=== PATIENT | female | born 1925 | race African-American/Black ===

== ENCOUNTER 2017-04-05 21:00 | Inpatient (IN) | payer MEDICARE, BC ==
[~2017-04-05] VITALS: Ht 162.6 cm; Wt 62.1 kg
[~2017-04-05 21:00] MED LIST: ASCO500C15 PO; ASPI-785 PO; CALC-1011 PO; CARB1TAB9 PO; CYAN10009 PO; DONE10TA43 PO; GUAI120015 PO; LES40 PO; LEVO5TAB13 PO; MAGN296S49 PO; MELA3TAB46 PO; MEMA10TA11 PO; MONT10TA21 PO; MULT-1195 PO; OMEG1CAP49 PO
[2017-04-05 22:24] LABS: CLARITY URINE CLEAR (CLEAR); COLOR URINE YELLOW (YELLOW); GLUCOSE URINE NEGATIVE (NEGATIVE); KETONES URINE NEGATIVE (NEGATIVE); LEUKOCYTE ESTERASE URINE NEGATIVE (NEGATIVE); NITRITE URINE NEGATIVE (NEGATIVE); OCCULT BLOOD URINE NEGATIVE (NEGATIVE); PROTEIN URINE NEGATIVE (NEGATIVE); SPECIFIC GRAVITY URINE 1.013 (1.005-1.030); UROBILINOGEN URINE 0.2 E.U./dL (0.2-1.0)
[2017-04-05 22:41] LABS: BASOPHILS % 0.7 % (0.0-2.0); EOSINOPHILS % 6.1 % (0.0-5.0); HEMATOCRIT. 37.1 % (36.0-48.0); HEMOGLOBIN. 12.3 g/dL (12.0-16.0); LYMPHOCYTES % 21.4 % (20.0-50.0); MEAN CORPUSCULAR HEMOGLOBIN 26.3 pg (28.0-32.0); MEAN CORPUSCULAR VOLUME 79.6 fL (81.0-99.0); MEAN PLATELET VOLUME 7.3 fl (7.4-10.4); NEUTROPHILS % 60.8 % (40.0-76.0); PLATELET 279 x1000/uL (130-400); RED BLOOD CELL COUNT 4.67 mill/uL (4.2-5.4)
[2017-04-05 22:49] LABS: INR 1.2; PROTHROMBIN TIME 12.1 sec
[2017-04-05 22:55] LABS: CARBON DIOXIDE 26 mEq/L (21-32); CHLORIDE 106 mEq/L (98-107)
[2017-04-05] MEDS ORDERED: LEVOFLOXACIN 750MG PREMIX 150 ML IV ONE (23:00)
[2017-04-06 08:00] VITALS: BP 155/76
[2017-04-06] MEDS ORDERED: GUAIFENESIN 200MG/10ML SUGAR FREE UDC PO PRN (08:45)
[2017-04-06] MEDS ORDERED: ONDANSETRON HCL 4MG/2ML VIAL IV PRN (08:45)
[2017-04-06] MEDS ORDERED: HYDROMORPHONE HCL/PF 2MG/ML CPJ IV PRN (08:45)
[2017-04-06] MEDS ORDERED: CLONIDINE 0.1MG TABLET PO PRN (08:45)
[2017-04-06 09:00] VITALS: BP 155/76
[2017-04-06] MEDS ORDERED: MAGNESIUM CITRATE 300ML SOLUTION PO PRN (09:00)
[2017-04-06] MEDS ORDERED: MEMANTINE HCL 10MG TABLET PO SCH (09:00)
[2017-04-06] MEDS ORDERED: MVI, ADULT NO.1 10 ML, FOLIC ACID 1 MG, THIAMINE HCL 100 MG in SODIUM CHLORIDE 0.9% 1,0... IV NR ×4 (10:00)
[2017-04-06] MEDS: CHOLECALCIFEROL (D3) 1000 UNIT TABLET PO SCH (10:10)
[2017-04-06] MEDS: ASCORBIC ACID 250 MG TABLET PO SCH (10:10)
[2017-04-06] MEDS: CALCIUM CARBONATE 1250MG TABLET (500MG ELEMENTAL CALCIUM) PO SCH (10:10)
[2017-04-06] MEDS: DONEPEZIL HCL 10MG TABLET PO SCH (10:10)
[2017-04-06] MEDS: CYANOCOBALAMIN 1000MCG TABLET PO SCH (10:11)
[2017-04-06] MEDS: ENOXAPARIN 30MG/0.3ML SYR SUBCUT SCH (10:11)
[2017-04-06] MEDS: MEMANTINE HCL 10MG TABLET PO SCH ×2 (10:11→21:53)
[2017-04-06] MEDS: CARBIDOPA/LEVODOPA 25/100MG TABLET PO SCH ×3 (10:25→17:35)
[2017-04-06 10:40] LABS: BASOPHILS % 0.7 % (0.0-2.0); EOSINOPHILS % 6.1 % (0.0-5.0); HEMATOCRIT. 37.4 % (36.0-48.0); HEMOGLOBIN. 12.3 g/dL (12.0-16.0); MEAN CORPUSCULAR HEMOGLOBIN 26.4 pg (28.0-32.0); MEAN CORPUSCULAR VOLUME 80.5 fL (81.0-99.0); MEAN PLATELET VOLUME 7.3 fl (7.4-10.4); MONOCYTES % 12.1 % (2.0-8.0); NEUTROPHILS % 60.1 % (40.0-76.0); PLATELET 298 x1000/uL (130-400); RED BLOOD CELL COUNT 4.65 mill/uL (4.2-5.4); RED CELL DISTRIBUTION WIDTH 15.3 % (11.6-14.6)
[2017-04-06 10:56] LABS: CARBON DIOXIDE 26 mEq/L (21-32); CHLORIDE 107 mEq/L (98-107); HDL CHOLESTEROL 26 mg/dL (40-59); LDL CHOLESTEROL 55 mg/dL (5-100)
[2017-04-06] MEDS: CEFTRIAXONE 1 G PREMIX 50 ML IV SCH (11:29)
[2017-04-06 12:00] VITALS: BP_SYST 158; BP_SYST 161; BP_DIAS 87
[2017-04-06] MEDS: AZITHROMYCIN 500 MG in DEXT 5% WATER 250 ML IV SCH (13:27)
[2017-04-06] MEDS: IPRATROPIUM/ALBUTEROL 0.5-3(2.5)MG/3ML NEB HHN SCH (15:08)
[2017-04-06 16:00] VITALS: BP 158/87
[2017-04-06] MEDS: MONTELUKAST SODIUM 10MG TABLET PO SCH (17:35)
[2017-04-06 20:00] VITALS: BP 160/98
[2017-04-06] MEDS ORDERED: ZOLPIDEM TARTRATE 5MG TABLET PO PRN (21:00)
[2017-04-06] MEDS: SODIUM CHL 0.45% + KCL 20MEQ/L 1,000 ML IV SCH (22:08)
[2017-04-07] VITALS: BP 165/81
[2017-04-07] MEDS: IPRATROPIUM/ALBUTEROL 0.5-3(2.5)MG/3ML NEB HHN SCH ×6 (00:31→21:31)
[2017-04-07 04:00] VITALS: BP 148/88
[2017-04-07 06:29] LABS: BASOPHILS % 0.5 % (0.0-2.0); HEMATOCRIT. 36.6 % (36.0-48.0); LYMPHOCYTES % 20.6 % (20.0-50.0); MEAN CORPUSCULAR HEMOGLOBIN 26.3 pg (28.0-32.0); MEAN CORPUSCULAR VOLUME 80.2 fL (81.0-99.0); MEAN PLATELET VOLUME 7.4 fl (7.4-10.4); MONOCYTES % 11.6 % (2.0-8.0); NEUTROPHILS % 63.3 % (40.0-76.0); PLATELET 319 x1000/uL (130-400); RED BLOOD CELL COUNT 4.56 mill/uL (4.2-5.4); RED CELL DISTRIBUTION WIDTH 14.9 % (11.6-14.6)
[2017-04-07 08:00] VITALS: BP 154/88
[2017-04-07] MEDS: CARBIDOPA/LEVODOPA 25/100MG TABLET PO SCH ×3 (08:12→17:57)
[2017-04-07] MEDS: DONEPEZIL HCL 10MG TABLET PO SCH (08:13)
[2017-04-07] MEDS: CALCIUM CARBONATE 1250MG TABLET (500MG ELEMENTAL CALCIUM) PO SCH (08:13)
[2017-04-07] MEDS: ASCORBIC ACID 250 MG TABLET PO SCH (08:13)
[2017-04-07] MEDS: CYANOCOBALAMIN 1000MCG TABLET PO SCH (08:13)
[2017-04-07] MEDS: CHOLECALCIFEROL (D3) 1000 UNIT TABLET PO SCH (08:13)
[2017-04-07] MEDS: MEMANTINE HCL 10MG TABLET PO SCH ×2 (08:13→21:16)
[2017-04-07] MEDS: ENOXAPARIN 30MG/0.3ML SYR SUBCUT SCH (08:21)
[2017-04-07] MEDS: SODIUM CHL 0.45% + KCL 20MEQ/L 1,000 ML IV SCH (08:22)
[2017-04-07] MEDS: AZITHROMYCIN 500 MG in DEXT 5% WATER 250 ML IV SCH (11:19)
[2017-04-07] MEDS: CEFTRIAXONE 1 G PREMIX 50 ML IV SCH (11:19)
[2017-04-07] MEDS: ACETAMINOPHEN 325MG TABLET PO PRN ×2 (11:36→17:58)
[2017-04-07 12:00] VITALS: BP 148/77
[2017-04-07 16:00] VITALS: BP 110/63
[2017-04-07] MEDS: MONTELUKAST SODIUM 10MG TABLET PO SCH (17:57)
[2017-04-07 20:00] VITALS: BP 133/69
[2017-04-08] VITALS: BP 127/58
[2017-04-08] MEDS: IPRATROPIUM/ALBUTEROL 0.5-3(2.5)MG/3ML NEB HHN SCH ×6 (01:11→20:56)
[2017-04-08 04:00] VITALS: BP 148/81
[2017-04-08 07:12] LABS: BASOPHILS % 0.6 % (0.0-2.0); EOSINOPHILS % 4.8 % (0.0-5.0); HEMATOCRIT. 37.4 % (36.0-48.0); LYMPHOCYTES % 31.5 % (20.0-50.0); MEAN CORPUSCULAR HEMOGLOBIN 26.2 pg (28.0-32.0); MEAN CORPUSCULAR VOLUME 81.5 fL (81.0-99.0); MEAN PLATELET VOLUME 7.5 fl (7.4-10.4); MONOCYTES % 11.7 % (2.0-8.0); NEUTROPHILS % 51.4 % (40.0-76.0); PLATELET 305 x1000/uL (130-400); RED CELL DISTRIBUTION WIDTH 15.1 % (11.6-14.6)
[2017-04-08 08:00] VITALS: BP 158/83
[2017-04-08] MEDS: DONEPEZIL HCL 10MG TABLET PO SCH (08:42)
[2017-04-08] MEDS: CARBIDOPA/LEVODOPA 25/100MG TABLET PO SCH ×3 (08:42→16:15)
[2017-04-08] MEDS: CALCIUM CARBONATE 1250MG TABLET (500MG ELEMENTAL CALCIUM) PO SCH (08:42)
[2017-04-08] MEDS: MEMANTINE HCL 10MG TABLET PO SCH ×2 (08:42→22:24)
[2017-04-08] MEDS: CYANOCOBALAMIN 1000MCG TABLET PO SCH (08:42)
[2017-04-08] MEDS: ASCORBIC ACID 250 MG TABLET PO SCH (08:42)
[2017-04-08] MEDS: LIDOCAINE HCL 4% CREAM 76GM TUBE TP SCH ×3 (08:43→16:16)
[2017-04-08] MEDS: ENOXAPARIN 30MG/0.3ML SYR SUBCUT SCH (08:43)
[2017-04-08] MEDS: CHOLECALCIFEROL (D3) 1000 UNIT TABLET PO SCH (08:43)
[2017-04-08] MEDS ORDERED: SORBITOL 70% SOLN 30ML PO NR (10:00)
[2017-04-08 12:00] VITALS: BP 141/78
[2017-04-08] MEDS: CEFTRIAXONE 1 G PREMIX 50 ML IV SCH (13:10)
[2017-04-08] MEDS: AZITHROMYCIN 500 MG in DEXT 5% WATER 250 ML IV SCH (13:34)
[2017-04-08 16:00] VITALS: BP 157/92
[2017-04-08] MEDS: MONTELUKAST SODIUM 10MG TABLET PO SCH (16:15)
[2017-04-08 20:00] VITALS: BP 187/111
[2017-04-08] MEDS ORDERED: CLONIDINE 0.2MG TABLET ONE (20:27)
[2017-04-09] VITALS: BP 134/75
[2017-04-09] MEDS: IPRATROPIUM/ALBUTEROL 0.5-3(2.5)MG/3ML NEB HHN SCH ×3 (00:32→12:53)
[2017-04-09 04:00] VITALS: BP 132/67
[2017-04-09 07:07] LABS: BASOPHILS % 0.6 % (0.0-2.0); EOSINOPHILS % 6.5 % (0.0-5.0); HEMOGLOBIN. 11.9 g/dL (12.0-16.0); LYMPHOCYTES % 26.2 % (20.0-50.0); MEAN CORPUSCULAR HEMOGLOBIN 26.4 pg (28.0-32.0); MEAN CORPUSCULAR VOLUME 80.1 fL (81.0-99.0); MEAN PLATELET VOLUME 7.1 fl (7.4-10.4); MONOCYTES % 9.8 % (2.0-8.0); NEUTROPHILS % 56.9 % (40.0-76.0); PLATELET 318 x1000/uL (130-400); RED CELL DISTRIBUTION WIDTH 15.1 % (11.6-14.6)
[2017-04-09 07:54] LABS: CARBON DIOXIDE 26 mEq/L (21-32); CHLORIDE 106 mEq/L (98-107)
[2017-04-09 08:00] VITALS: BP 167/92
[2017-04-09] MEDS: ASCORBIC ACID 250 MG TABLET PO SCH (09:04)
[2017-04-09] MEDS: CALCIUM CARBONATE 1250MG TABLET (500MG ELEMENTAL CALCIUM) PO SCH (09:04)
[2017-04-09] MEDS: MEMANTINE HCL 10MG TABLET PO SCH (09:04)
[2017-04-09] MEDS: CARBIDOPA/LEVODOPA 25/100MG TABLET PO SCH ×3 (09:04→16:46)
[2017-04-09] MEDS: CHOLECALCIFEROL (D3) 1000 UNIT TABLET PO SCH (09:04)
[2017-04-09] MEDS: DONEPEZIL HCL 10MG TABLET PO SCH (09:04)
[2017-04-09] MEDS: CYANOCOBALAMIN 1000MCG TABLET PO SCH (09:05)
[2017-04-09] MEDS: ENOXAPARIN 30MG/0.3ML SYR SUBCUT SCH (09:06)
[2017-04-09] MEDS: LIDOCAINE HCL 4% CREAM 76GM TUBE TP SCH ×3 (09:06→16:46)
[2017-04-09 09:34] LABS: TOTAL IRON BINDING CAPACITY 220 ug/dL (250-450)
[2017-04-09 12:00] VITALS: BP 125/69
[2017-04-09] MEDS ORDERED: TETRACYCLINE HCL 250MG CAPSULE PO SCH (12:00)
[2017-04-09] MEDS: CEFTRIAXONE 1 G PREMIX 50 ML IV SCH (12:07)
[2017-04-09] MEDS: AZITHROMYCIN 500 MG in DEXT 5% WATER 250 ML IV SCH (12:07)
[2017-04-09] MEDS: ACETAMINOPHEN 325MG TABLET PO PRN (15:55)
[2017-04-09 16:00] VITALS: BP 147/87
[2017-04-09] MEDS: MONTELUKAST SODIUM 10MG TABLET PO SCH (16:46)
== END 2017-04-09 20:30 | disposition home health service (06) | DRG 177 ==
LOC: EDBEDREQTM 23:14 → EDBEDREQ 23:14 → EDBEDREQSVC 23:14 → ER 23:48 → ENRESERV 04-06 07:00 → 6EST 04-06 08:26
PROVIDERS: ADMIT Internal Medicine Geriatric Medicine; ATTEND Internal Medicine Geriatric Medicine
DX: J69.0 Pneumonitis due to inhalation of food and vomit (principal); J81.0 Acute pulmonary edema; E44.0 Moderate protein-calorie malnutrition; N39.0 Urinary tract infection, site not specified; E86.0 Dehydration; R73.9 Hyperglycemia, unspecified; G20 Parkinson's disease; R03.0 Elevated blood-pressure reading, without diagnosis of hypertension; R74.0 Nonspecific elevation of levels of transaminase and lactic acid dehydrogenase [LDH]; R71.8 Other abnormality of red blood cells; B95.2 Enterococcus as the cause of diseases classified elsewhere; D50.9 Iron deficiency anemia, unspecified; E78.00 Pure hypercholesterolemia, unspecified
CPT/HCPCS: 36415; 71010; 71250; 73562; 80048; 80053; 80061; 81003; 82270; 83540; 83550; 83605; 85025; 85610; 87040; 87077; 87086; 87186; 93005; 93306; 93970; 94640; 94664; 96365; 96366; 97110; 97162; 97530; 99285; C1893; J0456; J0696; J1650; J1956; J3411; J3480; J3490; J7030; J7040; J7060; J7620